=== PATIENT | male | born 1940 | race Caucasian/White ===

== ENCOUNTER 2022-02-27 10:47 | Emergency (ER) | payer MEDICARE, MEDICAID, SELFPAY ==
[2022-02-27 11:00] VITALS: PULSE 50; RESP 16; TEMP 36.4; O2SAT 95; BMI 30.4
--- NOTE | 2022-02-27 11:18 | ED_ITS ---
HPI - General Adult General: Chief complaint: General Medical Stated complaint: BP issues Time Seen by Provider: 02/27/22 11:15 History of Present Illness: Patient is an 81-year-old male with history of diabetes, hypertension on multiple blood pressure medicine including amlodipine 2.5 mg and lisinopril 40 mg and metoprolol 25 mg daily presenting to the emergency room with concerns for hypertension. Patient tells me that his last blood pressure was normal was earlier this morning at 5 AM. Patient took all these medicine around the same time. Earlier today, patient went to [facility] and had a blood pressure taken of 70/40. Patient was then told to come to the emergency room for further evaluation. On arrival in triage, patient also had a blood pressure of 70/40. However in the emergency room, patient's blood pressure improved. Further questioning, patient denies LOC, focal weakness in the arms or legs, chest pain, short breath, abdominal pain, diarrhea, melena / or any recent hx of bleeding. Onset:earlier today Duration:ongoing Location:home Severity:moderate Associated symptoms: Reports rash (+chronic heel wounds b/l); Deny chest pain, dyspnea, nausea, palpitations or vomiting Review of Systems Const: Denies: fever(s) or chills Eyes: Denies: change in vision ENMT: Denies: mouth pain Card: Denies: chest pain or palpitations Resp: Denies: dyspnea or non-productive cough GI: Denies: abdominal pain, nausea, vomiting or diarrhea : Denies: dysuria Musc: Denies: extremity pain Skin/Breast: Reports: rash (+chronic heel wounds b/l) Neuro: Denies: weakness in extremities Psych: Reports: other (Normal mood) Marques/Lymph: Denies: easy bruising [facility] ED PFSH: Medical History Diabetes Hypertension Social History Smoking and tobacco status: never smoked Alcohol intake: never Substance/Drug Use: never Physical Exam Const: COMMON NORMALS: alert HENMT: COMMON NORMALS: atraumatic HEAD & SCALP: atraumatic MOUTH: moist mucous membranes not abnormal Eye: COMMON NORMALS: EOMs intact bilaterally and conjunctivae normal CONJUNCTIVA: Yes conjunctivae normal Neck/C-Spine: COMMON NORMALS: full ROM and supple Resp: COMMON NORMALS: normal respiratory effort and clear to auscultation bila terally AUSCULTATION: clear to auscultation bilaterally Cardio: COMMON NORMALS: regular rate RATE: regular rate GI: COMMON NORMALS: Soft to palpation and non-tender PALPATION: Yes Soft to palpation OTHER: No focal TTP. NO guarding rebound, guarding, rigidity. No CVA tenderness to percussion. Neg [place]/Neg McBurney's point tenderness, no suprabupic tenderness to palpation. Extremity: COMMON NORMALS: full ROM Neuro: SENSORIUM/ORIENTATION: Yes alert MOTOR EXAM: No Abnormal motor strength present and Other motor observations present (no focal motor deficits) Psych: COMMON NORMALS: speech normal SPEECH: Yes normal speech MOOD & AFFECT: Yes euthymic mood Skin: NARRATIVE SKIN EXAM: +chronic heel wounds b/l Course Vital Signs: Vital signs: Vital Signs Temperature 97.5 F L 02/27/22 11:00 Pulse Rate 78 02/27/22 14:01 Respiratory Rate 16 02/27/22 14:01 Blood Pressure 122/62 02/27/22 14:01 Pulse Oximetry 98 02/27/22 14:01 Oxygen Delivery Me thod 02/27/22 11:00 MDM - General Adult Medical Decision Making Patient is an 81-year-old male with history of diabetes, hypertension on multiple blood pressure medicine including amlodipine 2.5 mg and lisinopril 40 mg and metoprolol 25 mg daily presenting to the emergency room with concerns for hypertension. In the emergency room patient had a blood pressure 107/60. Patient continues to be AOx3, fully conversant. Patient has no focal findings on physical exam. Lab work showed white count 10.7. Hemoglobin 10.5 similar to baseline. Patient did have potassium 5.2. Patient has no EKG changes to suggest hyperkalemia. Creatinine 1.6. I discussed patient creatinine as well as a potassium number with patient and instructed patient to cut back on lisinopril. Patient continues to be hemodynamic stable did not exhibit any signs of lightheadedness or syncope. Patient has no history of CKD and I suspect the creatinine is similar to baseline. However I have given patient close follow-up with primary care provider for reassessment of patient's kidney function in 1 week. In addition, patient is noted to have potassium 5.2 today. I have instructed patient to cut back on lisinopril until repeat blood work. I have given patient follow up with our commercial real estate manager to be seen by our outpatient by primary care provider for reassessment of creatinine and potassium in 1 week. Patient aware of a call from our commercial real estate manager to schedule for appointment(s) and verbalizes understanding of the importance of following up. I have given patient follow up with our commercial real estate manager to be seen by our outpatient by wound care for chronic wounds on heels. Patient aware of a call from our commercial real estate manager to schedule for appointment(s) and verbalizes understanding of the importance of following up. Disposition: Discharge. Patient counseled regarding diagnostic impression, treatment plan. Patient given ED strict return precautions to return for continuation, worsening, or development of new symptoms. Instructed to f/u w/ PCP regarding symptoms today. Patient verbalized understanding. Lab Data : 02/27/22 11:21 02/27/22 11:21 Laboratory Results WBC 10.7 10^3/uL (4.0-10.0) H 02/27/22 11:21 RBC 3.68 10^6/uL (4.1-5.3) L 02/27/22 11:21 Hgb 10.5 g/dL (11.7-16.6) L 02/27/22 11:21 Hct 34.5 % (42.0-52.0) L 02/27/22 11:21 MCV 93.8 fl (80-94) 02/27/22 11:21 MCH 28.5 pg (28.0-34.0) 02/27/22 11:21 MCHC 30.4 g/dL (30.0-36.0) 02/27/22 11:21 RDW 16.8 % (12.1-15.1) H 02/27/22 11:21 Plt Count 211 10^3/cmm (130-400) 02/27/22 11: MPV 9.6 fL (7.4-10.4) 02/27/22 11:21 Neut % (Auto) 66.0 % 02/27/22 11:21 Lymph % (Auto) 21.8 % 02/27/22 11:21 Bowman % (Auto) 6.4 % 02/27/22 11:21 Eos % (Auto) 3.5 % 02/27/22 11:21 Baso % (Auto) 0.6 % 02/27/22 11:21 Neut # (Auto) 7.06 10^3/uL (1.8-7.7) 02/27/22 11:21 Lymph # (Auto) 2.3 10^3/uL (0.8-4.8) 02/27/22 11:21 Bowman # (Auto) 0.7 10^3/uL (0.2-0.9) 02/27/22 11:21 Eos # (Auto) 0.4 10^3/uL (0.0-0.8) 02/27/22 11:21 Baso # (Auto) 0.1 10^3/uL (0.0-0.1) 02/27/22 11:21 Nucleated RBC % (auto) 0 % 02/27/22 11: Nucleated RBCs # 0.0 /100WBC 02/27/22 11:21 Sodium 135 mmol/L (136-145) L 02/27/22 11:21 Potassium 5.2 mmol/L (3.5-5.1) H 02/27/22 11:21 Chloride 103 mmol/L (98-107) 02/27/22 11:21 Carbon Dioxide 19 mmol/L (22-29) L 02/27/22 11:21 Anion Gap 18.2 (5-19) 02/27/22 11:21 BUN 69 mg/dL (8-23) H 02/27/22 11:21 Creatinine 1.6 mg/dL (0.7-1.2) H 02/27/22 11:21 GFR Calculation Not Reportable 02/27/22 11:21 Glucose 174 mg/dL (65-115) H 02/27/22 11:21 Calculated Osmolality 304 mOsm/kg (285-295) H 02/27/22 11:21 Calcium 9.0 mg/dL (8.5-10.5) 02/27/22 11:21 Discharge Plan Discharge Patient Disposition: Home Clinical Impression: Hypotension, CKD (chronic kidney disease) Condition: Stable Prescriptions: No Action furosemide 40 mg tablet 40 mg PO DAILY divalproex 250 mg tablet,delayed release (DR/EC) 250 mg PO QPM aspirin 325 mg Tablet 325 mg PO DAILY sucralfate 1 gram tablet 2 g PO TID amlodipine 2.5 mg tablet 2.5 mg PO DAILY (DME) True Metrix Glucose Test Strip Strip MISCELLANEOUS omeprazole 40 mg capsule,delayed release(DR/EC) 40 mg PO DAILY potassium chloride 20 mEq tablet,ER particles/crystals 20 meq PO DAILY terazosin 2 mg capsule 2 mg PO DAILY simvastatin 20 mg tablet 20 mg PO BEDTIME FeroSul 325 mg (65 mg iron) tablet 325 mg PO DAILY metoprolol tartrate 50 mg tablet 50 mg PO BID lisinopril 40 mg tablet 40 mg PO DAILY memantine 5 mg tablet 5 mg PO BID quetiapine 50 mg tablet 50 mg PO DAILY Basaglar KwikPen U-100 Insulin 100 unit/mL (3 mL) insulin pen 10 unit SUBCUT BEDTIME Probiotic 20 billion cell Capsule 20,000 mmu cells PO DAILY Rx Instructions: administer with a meal Jardiance 25 mg tablet 25 mg PO DAILY Discharge Orders: Discharge ED (Routine); Ordered 02/27/22 Ordered By: Cathi Cruz Discharge Diet: Advance as tolerated Discharge Activity: Increase activity as tolerated Patient Instructions: Hypotension (ED) Activity Restrictions/Additional Instructions: Come back if you have any new or concerning issues. Please check your blood pressure daily and follow up with your primary care provider to reassess your potassium and your creatinine in 1 week. Consider holding back on lisinopril until rechecking your blood work. Our commercial real estate manager will have you follow-up with a primary care provider in the next few days. You would be expected to have a phone call with our commercial real estate manager who will put you on the schedule. You can expect a call from us in the next 2-3 days. If you don't hear from us, call us back in the emergency room at [phone]. Coding Level of Care Code ED [employer] for Carlos Fwwilbur Exam Comprehensive
[2022-02-27 11:27] LABS: Basophils # 0.1 10^3/uL (0.0-0.1); Basophils % 0.6 %; Eosinophils # 0.4 10^3/uL (0.0-0.8); Eosinophils % 3.5 %; Hematocrit 34.5 % (42.0-52.0); Hemoglobin 10.5 g/dL (11.7-16.6); Lymphocytes # 2.3 10^3/uL (0.8-4.8); Lymphocytes % 21.8 %; Mean Corpuscular HGB Conc 30.4 g/dL (30.0-36.0); Mean Corpuscular Hemoglobin 28.5 pg (28.0-34.0); Mean Corpuscular Volume 93.8 fl (80-94); Mean Platelet Volume 9.6 fL (7.4-10.4); Monocytes # 0.7 10^3/uL (0.2-0.9); Monocytes % 6.4 %; Neutrophils # 7.06 10^3/uL (1.8-7.7); Nucleated Red Blood Cells % 0 %; Platelet Count 211 10^3/cmm (130-400); Red Blood Count 3.68 10^6/uL (4.1-5.3); Red Cell Distribution Width 16.8 % (12.1-15.1); White Blood Count 10.7 10^3/uL (4.0-10.0)
--- NOTE | 2022-02-27 11:28 | ECG_ITS ---
[facility] Test Date: 2022-02-27 Pat Name: Judah Yousif Department: Room: Gender: Male Checkout Operator: : 1940 Requested By: Cathi Cruz Order Number: [id number] Hermes MD: Preet Burnett M.D. Measurements Intervals [place] Rate: 57 P: -51 PA: 182 QRS: -84 QRSD: 148 T: 42 QT: 463 QTc: 453 Interpretive Statements SINUS BRADYCARDIA RIGHT BUNDLE BRANCH BLOCK [120+ ms QRS DURATION, UPRIGHT V1, 40+ ms S IN I/aVL/V4/V5/V6] LEFT ANTERIOR FASCICULAR BLOCK [QRS AXIS <= -45, QR IN I, RS IN II] No previous ECG available for comparison Electronically Signed On 02-27-2022 14:47:10 CDT by Preet Burnett M.D. [id number]
[2022-02-27] MEDS: sodium chloride 0.9% 500 ML IV (11:31)
[2022-02-27 11:44] LABS: Anion Gap 18.2 (5-19); Blood Urea Nitrogen 69 mg/dL (8-23); Carbon Dioxide 19 mmol/L (22-29); Chloride 103 mmol/L (98-107); Glucose 174 mg/dL (65-115); Osmolality Calculated 304 mOsm/kg (285-295); Potassium 5.2 mmol/L (3.5-5.1); Sodium 135 mmol/L (136-145)
[2022-02-27 12:11] VITALS: BP 107/59
[2022-02-27 14:01] VITALS: BP 122/62; PULSE 78; RESP 16; O2SAT 98
[2022-02-27 14:47] VITALS: BP 122/62; PULSE 78; RESP 16; O2SAT 98
--- NOTE | 2022-03-03 13:28 | DCPLANNER ---
microbiology laboratory manager had message to speak with patient about getting established with a primary care physician. microbiology laboratory manager was unable to speak with patient at this time.
== END 2022-02-27 14:49 | disposition home or self-care (01) ==
PROVIDERS: Emergency Provider Emergency Medicine
DX: I95.9 Hypotension, unspecified (principal); I12.9 Hypertensive chronic kidney disease with stage 1 through stage 4 chronic kidney disease, or unspecified chronic kidney disease; E11.22 Type 2 diabetes mellitus with diabetic chronic kidney disease; N18.9 Chronic kidney disease, unspecified; Z79.82 Long term (current) use of aspirin; Z79.4 Long term (current) use of insulin
CPT/HCPCS: 80048; 85025; 93005; 99284; J7040

== ENCOUNTER → 2022-05-13 11:04 | Outpatient (BNVA) | payer MEDICARE, MEDICAID, SELFPAY | PROVIDERS: Visit Provider Nurse Practitioner Family | DX: Z86.2 Personal history of diseases of the blood and blood-forming organs and certain disorders involving the immune mechanism (principal); Z12.5 Encounter for screening for malignant neoplasm of prostate; I10 Essential (primary) hypertension; E11.9 Type 2 diabetes mellitus without complications; N40.0 Benign prostatic hyperplasia without lower urinary tract symptoms | CPT/HCPCS: 80053; 80061; 83550; G0103 ==